=== PATIENT | male | born 1940 | race Two or more races ===

== ENCOUNTER 2021-12-23 13:55 | Emergency (ER) | payer OTHER ==
[~2021-12-23] VITALS: Ht 167.6 cm; Wt 63.5 kg
[2021-12-23] MEDS ORDERED: ARICEPT10 MG (14:19)
[2021-12-23] MEDS ORDERED: LIPITOR40 MG (14:19)
[2021-12-23] MEDS ORDERED: ECOTRIN81 MG (14:19)
== END 2021-12-23 21:49 | disposition home or self-care (01) ==
LOC: ER 13:55
DX: R10.13 Epigastric pain (principal); Z20.822 Contact with and (suspected) exposure to COVID-19